=== PATIENT | female | born 1955 | race Caucasian/White ===

== ENCOUNTER 2018-02-11 10:27 | Emergency (ER) | payer OTHER ==
[~2018-02-11] VITALS: Ht 172.7 cm; Wt 89.5 kg
[2018-02-11 10:33] VITALS: Ht 172.7 cm; Wt 89.5 kg
[2018-02-11] MEDS ORDERED: CELEXA20 MG PO (10:34)
[2018-02-11] MEDS ORDERED: DYAZIDE 37.5/251 CAP PO (10:34)
[2018-02-11] MEDS ORDERED: COREG25 MG PO (10:34)
[2018-02-11] MEDS ORDERED: ZANTAC150 MG PO (10:34)
[2018-02-11] MEDS ORDERED: NORCO 7.5/325 T1 TA1 PO (12:40)
[2018-02-11] MEDS ORDERED: VALIUM 2 MG TAB2 MG PO (12:40)
[2018-02-11 13:50] VITALS: BP 124/68
== END 2018-02-11 13:54 | disposition home or self-care (01) ==
LOC: D.ER 10:27
DX: S39.012A Strain of muscle, fascia and tendon of lower back, initial encounter (principal); X58.XXXA Exposure to other specified factors, initial encounter; Y93.89 Activity, other specified; Y92.89 Other specified places as the place of occurrence of the external cause; M51.26 Other intervertebral disc displacement, lumbar region; M54.16 Radiculopathy, lumbar region; I10 Essential (primary) hypertension; K21.9 Gastro-esophageal reflux disease without esophagitis